=== PATIENT | female | born 1955 | race African-American/Black ===

== ENCOUNTER 2018-04-29 11:32 | Emergency (ER) | payer MEDICAID ==
[~2018-04-29] VITALS: Ht 167.6 cm; Wt 97.5 kg
[2018-04-29] MEDS ORDERED: SIMVASTATIN10 MG ORAL (11:55)
[2018-04-29] MEDS ORDERED: CATAPRES0.1 MG ORAL (11:55)
[2018-04-29] MEDS ORDERED: LABETALOL HCL200 MG ORAL (11:55)
[2018-04-29] MEDS ORDERED: DOCUSATE SODIU100 MG ORAL (11:55)
[2018-04-29] MEDS ORDERED: OMEPRAZOLE20 M2 ORAL (11:56)
[2018-04-29] MEDS ORDERED: ADALAT10 MG ORAL (11:56)
[2018-04-29] MEDS ORDERED: Isovue-300 100ml vial INJ PRN (12:00)
[2018-04-29 12:19] LABS: APPEARANCE,URINE CLEAR; BILIRUBIN, URINE NEGATIVE (NEGATIVE); COLOR,URINE PALE YELLOW; GLUCOSE, URINE (UA) NEGATIVE (NEGATIVE); KETONES,URINE NEGATIVE (NEGATIVE); LEUKOCYTE ESTERASE ,URINE NEGATIVE (NEGATIVE); NITRITE,URINE NEGATIVE (NEGATIVE); PH,URINE 5 (4.5-8.0); PROTEIN,URINE NEGATIVE (NEGATIVE); UROBILINOGEN,URINE NORMAL MG/DL (0.0-1.0)
[2018-04-29 12:25] LABS: BASOPHILS % (AUTO) 1.1 % (0.0-2.0); EOSINOPHILS % (AUTO) 5.1 % (0.0-3.0); HEMATOCRIT 40.7 % (37.0-47.0); HEMOGLOBIN 13.1 G/DL (12.0-16.0); LYMPHOCYTES % (AUTO) 41.3 % (20.0-45.0); MEAN CORPUSCULAR VOLUME 86 FL (80-99); MONOCYTES % (AUTO) 5.6 % (1.0-10.0); NEUTROPHILS % (AUTO) 46.9 % (45.0-75.0); PLATELET COUNT 348 K/UL (150-450); RED BLOOD COUNT 4.75 M/UL (4.20-5.40); RED CELL DISTRIBUTION WIDTH 12.5 % (11.6-14.8); WHITE BLOOD COUNT 8.5 K/UL (4.8-10.8)
[2018-04-29 12:28] VITALS: BP 175/83
--- NOTE | 2018-04-29 12:33 | Diagnostic Imaging Report ---
Indication: Pain Technique: XRAY Chest 1v Comparison: None Findings: Mild cardiomegaly. Question a degree of pulmonary vascular congestion. No definite focal airspace consolidation. No same or pleural effusion. No pneumothorax. There are degenerative changes of the spine could no acute osseous abnormality seen. Impression: Mild cardiomegaly and question of pulmonary vascular congestion/mild CHF. No definite airspace consolidation.
[2018-04-29 12:42] LABS: ANION GAP 4 mmol/L (5-15); BLOOD UREA NITROGEN 17 mg/dL (7-18); CARBON DIOXIDE 30 MMOL/L (21-32); CHLORIDE 103 MMOL/L (98-107); CREATININE 0.8 MG/DL (0.55-1.30); POTASSIUM 3.8 MMOL/L (3.5-5.1); SODIUM 137 MMOL/L (136-145)
[2018-04-29 12:47] LABS: ALANINE AMINOTRANSFERASE 20 U/L (12-78); ALBUMIN 3.4 G/DL (3.4-5.0); ALBUMIN/GLOBULIN RATIO 0.6 (1.0-2.7); ALKALINE PHOSPHATASE 125 U/L (46-116); ASPARTATE AMINO TRANSFERASE 14 U/L (15-37); BILIRUBIN,TOTAL 0.2 MG/DL (0.2-1.0)
--- NOTE | 2018-04-29 13:10 | Emergency Room Report ---
History of Present Illness General Chief Complaint: Abdominal Pain Source: Patient Present Illness HPI Patient states that she has had about 3 months of ongoing difficulty having bowel movements. She states that she also has a feeling of fullness in her abdomen. She did get a "colonic." She states that has not helped. She is on stool softeners. She is not on laxatives. She states she has diffuse pain in her abdomen. Allergies: Coded Allergies: No Known Allergies (Unverified , 08/29/14) Patient History Past Medical History: see triage record, HTN Social History: Denies: smoking, alcohol use, drug use Reviewed Nursing Documentation: PMH: Agreed; PSxH: Agreed Nursing Documentation-PMH Past Medical History: No History, Except For Hx Hypertension: Yes Hx Gastrointestinal Problems: Yes Review of Systems All Other Systems: negative except mentioned in HPI Physical Exam Vital Signs Date Time Temp Pulse Resp B/P (MAP) Pulse Ox O2 Delivery O2 Flow Rate FiO2 04/29/18 11:40 98.1 76 20 175/83 98 Room Air 98.1 Sp02 EP Interpretation: reviewed, normal General Appearance: no apparent distress, alert, GCS 15, non-toxic Head: normocephalic, atraumatic Eyes: bilateral eye normal inspection, bilateral eye PERRL ENT: hearing grossly normal, normal pharynx, no angioedema, normal voice Neck: full range of motion, supple/symm/no masses Respiratory: chest non-tender, lungs clear, normal breath sounds, speaking full sentences Cardiovascular #1: regular rate, rhythm, no edema Gastrointestinal: normal bowel sounds, soft, non-distended, no guarding, no rebound, tenderness - Diffusely TTP Rectal: deferred Musculoskeletal: back normal, gait/station normal, normal range of motion, non- tender Neurologic: alert, oriented x3, responsive, motor strength/tone normal, sensory intact, speech normal Psychiatric: judgement/insight normal, memory normal, mood/affect normal, no suicidal/homicidal ideation Skin: normal color, no rash, warm/dry, well hydrated Medical Decision Making Diagnostic Impression: Primary Impression: Abdominal pain Additional Impression: Constipation ER Course The patient's CT scan showed no acute findings. The patient has a history of gallbladder J-P tube and biliary stent placement. These postsurgical findings are seen on CT. There is no evidence of bowel instruction or diverticulitis. The patient complains constipation. I'll increase her bowel regimen to a laxative and an enema in addition to a stool softener. At this time, I did not identify an emergency medical condition. The patient's given return precautions and follow-up instructions. Laboratory Tests Test 04/29/18 11:56 04/29/18 12:08 Urine Color Pale yellow Urine Appearance Clear Urine pH 5 (4.5-8.0) Urine Specific [place] 1.015 (1.005-1.035) Urine Protein Negative (NEGATIVE) Urine Glucose (UA) Negative (NEGATIVE) Urine Ketones Negative (NEGATIVE) Urine Occult Blood Negative (NEGATIVE) Urine Nitrite Negative (NEGATIVE) Urine Bilirubin Negative (NEGATIVE) Urine Urobilinogen Normal MG/DL (0.0-1.0) Urine Leukocyte Esterase Negative (NEGATIVE) White Blood Count 8.5 K/UL (4.8-10.8) Red Blood Count 4.75 M/UL (4.20-5.40) Hemoglobin 13.1 G/DL (12.0-16.0) Hematocrit 40.7 % (37.0-47.0) Mean Corpuscular Volume 86 FL (80-99) Mean Corpuscular Hemoglobin 27.5 PG (27.0-31.0) Mean Corpuscular Hemoglobin Concent 32.2 G/DL (32.0-36.0) Red Cell Distribution Width 12.5 % (11.6-14.8) Platelet Count 348 K/UL (150-450) Mean Platelet Volume 5.9 FL (6.5-10.1) L Neutrophils (%) (Auto) 46.9 % (45.0-75.0) Lymphocytes (%) (Auto) 41.3 % (20.0-45.0) Monocytes (%) (Auto) 5.6 % (1.0-10.0) Eosinophils (%) (Auto) 5.1 % (0.0-3.0) H Basophils (%) (Auto) 1.1 % (0.0-2.0) Prothrombin Time 10.7 SEC (9.30-11.50) Prothrombin Time INR 1.0 (0.9-1.1) PTT 29 SEC (23-33) Sodium Level 137 MMOL/L (136-145) Potassium Level 3.8 MMOL/L (3.5-5.1) Chloride Level 103 MMOL/L (98-107) Carbon Dioxide Level 30 MMOL/L (21-32) Anion Gap 4 mmol/L (5-15) L Blood Urea Nitrogen 17 mg/dL (7-18) Creatinine 0.8 MG/DL (0.55-1.30) Estimate Glomerular Filtration Rate > 60 mL/min (>60) Glucose Level 101 MG/DL (74-106) Calcium Level 9.0 MG/DL (8.5-10.1) Total Bilirubin 0.2 MG/DL (0.2-1.0) Aspartate Amino Transferase (AST) 14 U/L (15-37) L Alanine Aminotransferase (ALT) 20 U/L (12-78) Alkaline Phosphatase 125 U/L (46-116) H Troponin I 0.017 ng/mL (0.000-0.056) Total Protein 9.0 G/DL (6.4-8.2) H Albumin 3.4 G/DL (3.4-5.0) Globulin 5.6 g/dL Albumin/Globulin Ratio 0.6 (1.0-2.7) L Lipase 115 U/L (73-393) CT/MRI/US Diagnostic Results CT/MRI/US Diagnostic Results : Imaging Test Ordered: CT abd/pelvis Impression No acute findings. See official report in the electronic medical record for other postsurgical findings. Last Vital Signs Date Time Temp Pulse Resp B/P (MAP) Pulse Ox O2 Delivery O2 Flow Rate FiO2 04/29/18 12:28 98.1 20 175/83 98 Room Air 98.1 04/29/18 11:40 76 Status: improved Disposition: HOME, SELF-CARE Condition: Improved Referrals: [facility],REFERRING (PCP) Yvonne Queen DO Apr 29, 2018 13:10
--- NOTE | 2018-04-29 13:53 | Diagnostic Imaging Report ---
Indication: Abdominal pain Technique: CT of the abdomen and pelvis utilizing automated exposure control with intravenous contrast. Venous scanning performed. Axial, sagittal and coronal reformats presented. CT dose: Total DLP 977.07 mGycm; CTDI vol 19.28 mGy Comparison: 08/29/2014 Findings: Dependent atelectasis noted in the lung bases. The heart is enlarged. There is no pericardial effusion. Hepatic contour is smooth. No focal hepatic mass lesion is appreciated on this single phase exam. There are indwelling common bile duct stents, with appearance of 2 plastic stents sitting [id number]. There is pneumobilia. Gallbladder is present with some thickening at the gallbladder wall at the fundus and what looks like a subcutaneous tract extending to the skin surface. These findings are likely sequela of prior cholecystostomy tube. Additional etiologies for focal gallbladder wall thickening including neoplastic etiologies not excluded. Correlate with surgical history. Spleen, adrenal glands and pancreas unremarkable. There are unchanged simple appearing cysts in the right kidney. Kidneys enhance symmetrically. No urinary tract stone or hydronephrosis bilaterally. The bladder is decompressed, limiting its evaluation. A partially calcified uterine mass somewhat distorts the contour of the uterus. These findings suggest fibroids. Adnexa are grossly unremarkable for CT. There is a small hiatal hernia. There is no evidence of free intraperitoneal air or fluid. No evidence of bowel obstruction or inflammatory change in the mesentery. No pathologically enlarged lymphadenopathy. Abdominal aorta is normal in caliber with scattered atherosclerotic calcification. There are degenerative changes of the spine. No acute osseous abnormality is seen. IMPRESSION: * No evidence of bowel obstruction or inflammation. * No urinary tract stone or hydronephrosis. * Pneumobilia, likely related to indwelling common bile duct stents. * Thickening of the gallbladder wall at the fundus with probable old subcutaneous tract to the skin. These findings are likely related to prior cholecystostomy tube. Correlation with surgical history recommended. Additional etiologies of focal gallbladder wall thickening not excludable. * Small hiatal hernia. * Partially calcified uterine mass, likely fibroid. Correlate clinically. Consider further evaluation with routine pelvic ultrasound. The CT scanner at [facility] is accredited by the [employer] and the scans are performed using protocols designed to limit radiation exposure to as low as reasonably achievable to attain images of sufficient resolution adequate for diagnostic evaluation.
[2018-04-29] MEDS ORDERED: Ketorolac 30mg Inj IV ONE (15:15)
[2018-04-29] MEDS ORDERED: MIRALAX17 G2 ORAL (15:18)
[2018-04-29] MEDS ORDERED: FLEET ENEMA133 ML RECTAL (15:18)
[2018-04-29 15:36] VITALS: BP 155/79
== END 2018-04-29 15:40 | disposition home or self-care (01) ==
LOC: EMR 12:49
DX: R10.9 Unspecified abdominal pain (principal); K59.00 Constipation, unspecified; I10 Essential (primary) hypertension
CPT/HCPCS: 36415; 71045; 74177; 80053; 81003; 83690; 84484; 85025; 85610; 85730; 96361; 96374; 96375; 99284; J1885; Q9967; S0028; 96360